=== PATIENT | female | born 1995 | race African-American/Black ===

== ENCOUNTER 2020-03-12 11:41 | Emergency (ER) | payer OTHER ==
[2020-03-13 14:31] LABS: SARS-CoV-2 MS2 Positive; SARS-CoV-2 N Gene Positive; SARS-CoV-2 S Gene Positive; SARS-CoV-2 orf1ab Positive
== END 2020-03-12 12:37 | disposition home or self-care (01) ==
LOC: ERS 11:41
DX: U07.1 COVID-19 (principal); F17.210 Nicotine dependence, cigarettes, uncomplicated
CPT/HCPCS: 87635; 99283; U0003